=== PATIENT | male | born 1960 | race Two or more races ===

== ENCOUNTER 2019-07-18 14:36 | Emergency (ER) | payer SELFPAY ==
[~2019-07-18] VITALS: Ht 167.6 cm; Wt 79.0 kg
[2019-07-18] MEDS ORDERED: SODIUM CHLORIDE 0.9% 500 ML IV ONE (15:00)
[2019-07-18 15:21] VITALS: BP 157/81
[2019-07-18 15:45] LABS: CHLORIDE 110 mEq/L (98-107)
[2019-07-18 15:46] LABS: BASOPHILS % 0.6 % (0.0-2.0); EOSINOPHILS % 4.1 % (0.0-5.0); HEMATOCRIT. 43.4 % (42.0-52.0); HEMOGLOBIN. 15.2 g/dL (14.0-18.0); LYMPHOCYTES % 20.8 % (20.0-50.0); MEAN CORPUSCULAR HEMOGLOBIN 32.6 pg (28.0-32.0); MEAN CORPUSCULAR VOLUME 93.1 fL (80.0-94.0); MEAN PLATELET VOLUME 7.8 fl (7.4-10.4); MONOCYTES % 11.2 % (2.0-8.0); NEUTROPHILS % 63.3 % (40.0-76.0); PLATELET 327 x1000/uL (130-400); RED BLOOD CELL COUNT 4.66 mill/uL (4.7-6.1); RED CELL DISTRIBUTION WIDTH 14.4 % (11.6-14.6)
== END 2019-07-18 16:16 | disposition left against medical advice (07) ==
LOC: ER 14:36
DX: F15.10 Other stimulant abuse, uncomplicated (principal); M25.561 Pain in right knee; F12.10 Cannabis abuse, uncomplicated
CPT/HCPCS: 36415; 80053; 84484; 85025; 93005; 96360; 99284